=== PATIENT | male | born 1980 | race Caucasian/White ===

== ENCOUNTER 2017-02-03 21:23 | Emergency (ER) | payer OTHER ==
--- NOTE | 2017-02-03 21:35 | EDPHY ---
H & P Stated Complaint: pt crying at triage, +etoh, unable to verbalize whats going on Source: Patient - Personal History Current Tetanus Diphtheria and Acellular Pertussis (TDAP): Unsure - Medical/Surgical History Hx Asthma: Yes Hx Chronic Respiratory Disease: No Hx Diabetes: No Hx Cardiac Disease: No Hx Renal Disease: No Hx Cirrhosis: No Hx Alcoholism: Yes Hx HIV/AIDS: No Hx Splenectomy or Spleen Trauma: No Other PMH: depression - Social History Smoking Status: Never smoked HPI/ROS: HPI CHIEF COMPLAINT: Depressed, SI, ETOH HISTORY OF PRESENT ILLNESS: This patient is a 36-year-old male he presents emergency room by private vehicle with a friend for being intoxicated with alcohol in depression and suicidal ideation. Patient reports to me that he suicidal doubt a specific plan. He also reports to me drank multiple shots of liquor this evening. No history of inpatient psychiatric hospitalization. Does have a history of depression. Takes Prozac. Past Medical History: Depression, ? Pseudo-seizure Past Surgical History: Denies recent surgical history Social History: [employer] student, admits to alcohol denies illicit drugs tobacco. Family History: Noncontributory ROS REVIEW OF SYSTEMS: A comprehensive 10 point review of systems is otherwise negative aside from elements mentioned in the history of present illness. Exam Constitutional tearful, depressed, smells of alcohol triage nursing summary reviewed, vital signs reviewed, awake/alert. Eyes normal conjunctivae and sclera, EOMI, PERRLA. HENT normal inspection, atraumatic, moist mucus membranes, no epistaxis, neck supple/ no meningismus, no raccoon eyes. Respiratory clear to auscultation bilaterally, normal breath sounds, no respiratory distress, no wheezing. Cardiovascular rate normal, regular rhythm, no murmur, no edema, distal pulses normal. Gastrointestinal soft, non-tender, no rebound, no guarding, normal bowel sounds, no distension, no pulsatile mass. Genitourinary no CVA tenderness. Musculoskeletal no midline vertebral tenderness, full range of motion, no calf swelling, no tenderness of extremities, no meningismus, good pulses, neurovascularly intact. Skin pink, warm, & dry, no rash, skin atraumatic. Neurologic awake, alert and oriented x 3, AAOx3, moves all 4 extremities equally, motor intact, sensory intact, CN II-XII intact, normal cerebellar, normal vision, normal speech. Psychiatric tearful, flat affect, depressed. Heme/Lymph/Immune no lymphadenopathy. Differential Diagnosis: Includes but is not limited to in a particular order depression, alcohol abuse, alcoholism, suicidal ideation Medical Decision Making: Plan for this patient blood draw for medical clearance. Patient will be placed on M1 hold. Re-evaluation: (Roger Do) Constitutional: Initial Vital Signs Temperature (C) 37.0 C 02/03/17 21:28 Heart Rate 113 H 02/03/17 21:28 Respiratory Rate 18 02/03/17 21:28 Blood Pressure 122/83 H 02/03/17 21:28 O2 Sat (%) 99 02/03/17 21:28 O2 Delivery Mode Room Air O2 (L/minute) 95 Allergies/Adverse Reactions: No Known Allergies Allergy (Unverified 02/03/17 21:27) Home Medications: Medication Instructions Recorded Prozac 10 MG (*) 02/03/17 VITAMIN D 02/03/17 Medical Decision Making Other Provider: I assumed care of the patient at 7 o'clock in the morning pending psychiatric disposition. The patient was evaluated by the [facility] psychiatric team. The case was discussed with the on-call psychiatrist Dr. Phelan. The patient currently has no suicidal plan. He does have thoughts of depression secondary to his ongoing alcohol dependence. Plan was discussed. At this point time, Dr. Phelan does not feel the patient meets criteria for 72 hour mental health hold. And he has vacated that hold. The patient is [facility] as most of his problems seem to surround alcohol abuse. The patient will also follow up as an outpatient with [facility]. The patient has signed a release to have his information related to them. The patient will be transferred to the [facility] with Librium. The patient does promise to come back to emergency department for any worsening symptoms depression, worsening suicidal thoughts, worsening condition or for any additional acute concerns. I was asked to follow up with the patient regarding the plan. They would really like to be considered for a voluntary admission to [facility]. I spoke with the massage coordinator there reviewed his case. They are willing to evaluate him at 3:30 p.m. today for possible placement into the detox program. His girlfriend will drive him to the facility. (Florentin Byrd) - Data Points Laboratory Results: Laboratory Results 02/03/17 22:40 02/03/17 22:40 02/04/17 12:03 Total Bilirubin 0.6 mg/dL mg/dL (0.1-1.4) Conjugated Bilirubin 0.4 mg/dL mg/dL (0.0-0.5) Unconjugated Bilirubin 0.2 mg/dL mg/dL (0.0-1.1) AST 67 IU/L H IU/L (17-59) ALT 67 IU/L IU/L (21-72) Alkaline Phosphatase 71 IU/L IU/L (38-126) Total Protein 7.0 g/dL g/dL (6.3-8.2) Albumin 4.2 g/dL g/dL (3.5-5.0) Medications Given: Fluoxetine HCl (Prozac) 10 mg PO DAILY SYLVIE Stop: 08/03/17 12:14 Last Admin: 02/04/17 12:56 Dose: 10 mg Discontinued Medications Chlordiazepoxide (Librium 25 Mg Prepack#6) 1 btl TAKEHOME EDNOW ONE Stop: 02/04/17 13:50 Last Admin: 02/04/17 14:03 Dose: 1 btl Sodium Chloride (Ns) 1,000 mls @ 0 mls/hr IV ONCE ONE PRN Reason: Wide Open Stop: 02/03/17 21:48 Last Admin: 02/03/17 22:30 Dose: 1,000 mls Lorazepam (Ativan Injection) 1 mg IVP EDNOW ONE Stop: 02/04/17 03:19 Last Admin: 02/04/17 03:23 Dose: 1 mg Departure - Departure Disposition: Home, Routine, Self-Care Clinical Impression: Alcohol intoxication Qualifiers: Complication of substance-induced condition: uncomplicated Qualified Code(s): F10.920 - Alcohol use, unspecified with intoxication, uncomplicated Depression Qualifiers: Depression Type: major depressive disorder Major depression recurrence: single episode Active/Remission status: currently active Major depression episode severity: moderate Qualified Code(s): F32.1 - Major depressive disorder, single episode, moderate Condition: Good Instructions: Chlordiazepoxide (By mouth), Alcohol Dependence (ED) Additional Instructions: 1. Please return to the ED immediately if you are having thoughts of harming yourself, having worsening depression or other concerns. 2. [facility] has agreed to evaluate you today for possible in taken to the detox program at 3:30 p.m.. You have been given the contact information for the [facility] as a back stop measure. Referrals: [facility] [Other] - As per Instructions [facility],. [Clinic] - As per Instructions
[2017-02-03] MEDS ORDERED: NS 1,000 ML IV ONE (21:47)
[2017-02-03 22:49] LABS: % IMMATURE GRANULYOCYTES 0.3 % (0.0-1.1); ABSOLUTE IMMATURE GRANULOCYTES 0.02 10^3/uL (0.00-0.10); ADD DIFF? NO; ADD MORPH? NO; ADD SCAN? NO; ATYPICAL LYMPHOCYTE FLAG 0 (0-99); FRAGMENT RBC FLAG 0 (0-99); HEMATOCRIT 43.5 % (40.0-51.0); HEMOGLOBIN 16.1 g/dL (13.7-17.5); LEFT SHIFT FLG 0 (0-99); LIPEMIA HEMOLYSIS FLAG 90 (0-99); MEAN CELL HEMOGLOBIN 35.5 pg (27.9-34.1); MEAN CELL VOLUME 95.8 fL (81.5-99.8); MEAN PLATELET VOLUME 9.9 fL (8.7-11.7); PLATELET CLUMPS FLAG 0 (0-99); PLATELET COUNT 168 10^3/uL (150-400); RED BLOOD CELL COUNT 4.54 10^6/uL (4.40-6.38); RED CELL DISTRIBUTION WIDTH 13.1 % (11.5-15.2)
[2017-02-03 23:11] LABS: ANION GAP 16 mEq/L (8-16); CARBON DIOXIDE 20 mEq/l (22-31); CHLORIDE 106 mEq/L (97-110); CREATININE 0.7 mg/dL (0.7-1.3); GLOMERULAR FILTRATION RATE > 60; GLUCOSE 91 mg/dL (70-100); POTASSIUM 4.1 mEq/L (3.5-5.2); SALICYLATE < 1.0 mg/dL (2.0-20.0); SODIUM 142 mEq/L (134-144)
[2017-02-03 23:19] LABS: ETHANOL SERUM 322 mg/dL (0-10)
[2017-02-04] MEDS ORDERED: LORazepam 2 MG/ML INJ IVP ONE (03:18)
[2017-02-04 07:53] VITALS: TEMP 98.6
[2017-02-04] MEDS ORDERED: FLUoxetine 10 MG CAP PO SCH (12:15)
[2017-02-04] MEDS ORDERED: CHLORDIAZEPOXIDE 25MG PREPK#6 BTL TAKEHOME ONE (13:49)
[2017-02-04 14:32] LABS: ALBUMIN 4.2 g/dL (3.5-5.0); BILIRUBIN,TOTAL 0.6 mg/dL (0.1-1.4); BILIRUBIN-CONJUGATED 0.4 mg/dL (0.0-0.5); BILIRUBIN-UNCONJUGATED 0.2 mg/dL (0.0-1.1)
[2017-02-04 15:00] VITALS: BP 114/96; PULSE 105; RESP 16; O2SAT 96
== END 2017-02-04 15:11 | disposition home or self-care (01) ==
DX: F32.1 Major depressive disorder, single episode, moderate (principal); F10.920 Alcohol use, unspecified with intoxication, uncomplicated; J45.909 Unspecified asthma, uncomplicated
CPT/HCPCS: 80305; 96374; G0480; J2060